=== PATIENT | male | born 1970 | race Caucasian/White ===

== ENCOUNTER 2017-07-29 16:04 | Emergency (ER) | payer OTHER ==
[~2017-07-29] VITALS: Ht 162.6 cm; Wt 92.5 kg
[~2017-07-29 16:04] MED LIST: ACET500; ACET650SUP; ACTOS PO; ALBIPROI INH; ALBU90OI INH; AMOCLA500 PO; AMOX500 PO; ASPI325; ASPI81EC PO; AZIT100SU PO; AZIT250 PO; BENZ100A PO; BUTASPCAF PO; BYDUREON P2 MG/0.65 SQ; Bactrim Ds Tab1 EACH PO; CEPH500 PO; CIPR500 PO; CLOT1TC TOP; CODBUTACEC PO; CYCL10 PO; Ciprodex Otic7.5 ML RIGHTEAR; DIAZ5 PO; DICL250 PO; DIPATR PO; DOXY100 PO; ESOM20 PO; GLIP5ER PO; GLYB2.5 PO; HYDACE10B PO; HYDACE5 PO; HYDGUAL120 PO; IBUP200; IBUP600 PO; IBUP800 PO; Janumet 50-1,01 EACH PO; Keflex500 MG PO; LEVOTHYROXINE PO; LEVSOD50 PO; LEVSOD75 PO; LIRA0.6P; LIRA0.6P SQ; LISI10 PO; LISI5 PO; LORA10ER PO; MECL25 PO; META800 PO; METF500 PO; METR500 PO; NAPR500 PO; NEOCOLOTSU OT; OXYACE5T PO; PIOG30 PO; PIOG45 PO; PRED20 PO; PROM25 PO; PROM25S PR; Prinivil10 MG PO; RXDIPATR PO; RXHYDACE PO; RXOXYACE PO; RXPROM25 PO; RXTRAM50 PO; SIMV10 PO; SITA25T2 PO; SULTRIDS PO; Simvastatin20 MG PO; TRAM50 PO; TRIA80TC TOP; [UNRECOGNIZED DRUG - REMARK]
[2017-07-29] MEDS ORDERED: FAMO20 PO (16:21)
[2017-07-29] MEDS ORDERED: SUCR1 PO (16:22)
[2017-07-29] MEDS ORDERED: CYCL10 PO (17:57)
== END 2017-07-29 18:04 | disposition home or self-care (01) ==
LOC: ER 16:04
DX: S20.211A Contusion of right front wall of thorax, initial encounter (principal); E11.9 Type 2 diabetes mellitus without complications; Z79.899 Other long term (current) drug therapy; V89.9XXA Person injured in unspecified vehicle accident, initial encounter
CPT/HCPCS: 71046; 99283

== ENCOUNTER 2018-10-13 15:05 | Emergency (ER) | payer BC ==
[~2018-10-13] VITALS: Ht 162.6 cm; Wt 88.0 kg
[~2018-10-13 15:05] MED LIST changes: +FAMO20 PO; +SUCR1 PO
[2018-10-13] MEDS ORDERED: Cheratussin AC118 ML PO (16:02)
[2018-10-13] MEDS ORDERED: GUAIFENESIN DM1 EACH PO (16:02)
== END 2018-10-13 16:08 | disposition home or self-care (01) ==
LOC: ER 15:05
DX: J06.9 Acute upper respiratory infection, unspecified (principal); Z79.899 Other long term (current) drug therapy; E11.9 Type 2 diabetes mellitus without complications
CPT/HCPCS: 71046; 99283-25

== ENCOUNTER 2020-02-20 16:22 | Emergency (ER) | payer OTHER, BC ==
[~2020-02-20] VITALS: Ht 162.6 cm; Wt 89.8 kg
[~2020-02-20 16:22] MED LIST changes: +Cheratussin AC118 ML PO; +GUAIFENESIN DM1 EACH PO
[2020-02-20] MEDS ORDERED: Norco 5-325 Ta1 EACH PO (17:25)
== END 2020-02-20 17:32 | disposition home or self-care (01) ==
LOC: ER 16:22
DX: S49.91XA Unspecified injury of right shoulder and upper arm, initial encounter (principal); E78.5 Hyperlipidemia, unspecified; I10 Essential (primary) hypertension; E03.9 Hypothyroidism, unspecified; E11.9 Type 2 diabetes mellitus without complications; K21.9 Gastro-esophageal reflux disease without esophagitis; Z79.84 Long term (current) use of oral hypoglycemic drugs; Z79.899 Other long term (current) drug therapy; X50.1XXA Overexertion from prolonged static or awkward postures, initial encounter; W00.0XXA Fall on same level due to ice and snow, initial encounter
CPT/HCPCS: 73030; 99283-25

== ENCOUNTER → 2022-09-05 | Outpatient (CLI) | payer BC, OTHER ==
[~2022-09-05] MED LIST changes: +Norco 5-325 Ta1 EACH PO
[2022-09-06 19:25] LABS: Adenovirus F 40/41 Not Detected (NOT DETECT); Astrovirus Not Detected (NOT DETECT); Campylobacter Sp Not Detected (NOT DETECT); Cryptosporidium Not Detected (NOT DETECT); Cyclospora Cayetanensis Not Detected (NOT DETECT); E. Coli O157 Not Detected (NOT DETECT); Entamoeba Histolytica Not Detected (NOT DETECT); Enteroaggregative E. coli-EAEC Not Detected (NOT DETECT); Enteropathogenic E. coli-EPEC Not Detected (NOT DETECT); Enterotoxigenic E. coli-ETEC Not Detected (NOT DETECT); Giardia Lamblia Not Detected (NOT DETECT); Norovirus GI/GII Not Detected (NOT DETECT); Plesiomonas Shigelloides Not Detected (NOT DETECT); Rotavirus A Not Detected (NOT DETECT); Salmonella Sp Not Detected (NOT DETECT); Sapovirus Not Detected (NOT DETECT); Shiga Toxin-prod E. coli-STEC Not Detected (NOT DETECT); Shigella/Enteroin E. coli-EIEC Not Detected (NOT DETECT); Vibrio Cholerae Not Detected (NOT DETECT); Vibrio Sp Not Detected (NOT DETECT); Yersinia Enterocolitica Not Detected (NOT DETECT)
== END | disposition home or self-care (01) ==
LOC: LAB SHORT 20:55 → LAB 20:55
PROVIDERS: Family Medicine
DX: R19.7 Diarrhea, unspecified (principal)
CPT/HCPCS: 87507

== ENCOUNTER → 2023-01-25 | Outpatient (CLI) | payer BC, OTHER | LOC: LAB SHORT 11:10 → LAB 11:10 | DX: L08.9 Local infection of the skin and subcutaneous tissue, unspecified (principal) | CPT/HCPCS: 87070; 87077; 87186; 87205 ==

== ENCOUNTER → 2023-08-23 | Outpatient (CLI) | payer OTHER ==
[~2023-08-23] MED LIST changes: +AMIT25 PO
[2023-08-23 17:52] LABS: BASOPHILS ABSOLUTE AUTO 0.07 K/mm3 (0.00-0.23); BASOPHILS PERCENT AUTO 1 % (0-2); EOSINOPHILS PERCENT AUTO 5 % (0-6); Hematocrit 42.9 % (37.0-53.0); Hemoglobin 14.6 g/dL (13.5-17.5); IMMATURE GRAN ABSOLUTE AUTO 0.07 K/mm3 (0.00-0.10); IMMATURE GRAN PERCENT AUTO 1 % (0-1); LYMPHOCYTES ABSOLUTE AUTO 3.15 K/mm3 (0.84-5.20); LYMPHOCYTES PERCENT AUTO 24 % (21-46); MONOCYTES ABSOLUTE AUTO 1.06 K/mm3 (0.16-1.47); MONOCYTES PERCENT AUTO 8 % (4-13); Mean Corpuscular Volume 88 fL (80-100); Mean Platelet Volume 9.8 fL (9.1-12.4); NEUTROPHILS ABSOLUTE AUTO 8.12 K/mm3 (1.96-9.15); NEUTROPHILS PERCENT AUTO 62 % (41-73); Platelet Count 333 K/mm3 (150-400); RDW Coefficient Variation 13.3 % (11.7-14.2); RDW Standard Deviation 42.8 fL (35.1-46.3); Red Blood Cell Count 4.86 M/mm3 (4.30-5.90); White Blood Cell Count 13.07 K/mm3 (4.00-11.30)
[2023-08-23 18:03] LABS: Albumin, Blood 4.2 g/dL (3.4-5.0); Albumin/Globulin Ratio 1.2 (0.8-1.8); Bilirubin, Total 0.5 mg/dL (0.1-1.0); Bun/Creatinine Ratio 19.7 (12.0-20.0); Calcium, Blood 9.7 mg/dL (8.5-10.1); Creatinine, Blood 1.27 mg/dL (0.60-1.20); Globulin, Blood 3.5 g/dL (2.2-4.0); Potassium, Blood 4.6 mmol/L (3.5-5.5); Total Protein, Blood 7.7 g/dL (6.4-8.2)
== END | disposition home or self-care (01) ==
LOC: LAB 17:48 → LAB SHORT 17:48
PROVIDERS: Emergency Medicine
DX: R00.0 Tachycardia, unspecified (principal)
CPT/HCPCS: 80053; 84484; 85025; 85379

== ENCOUNTER → 2023-11-15 | Outpatient (CLI) | payer OTHER ==
[2023-11-15 15:19] LABS: BASOPHILS ABSOLUTE AUTO 0.03 K/mm3 (0.00-0.23); BASOPHILS PERCENT AUTO 0 % (0-2); EOSINOPHILS PERCENT AUTO 4 % (0-6); Hematocrit 45.9 % (37.0-53.0); Hemoglobin 15.5 g/dL (13.5-17.5); IMMATURE GRAN ABSOLUTE AUTO 0.06 K/mm3 (0.00-0.10); IMMATURE GRAN PERCENT AUTO 0 % (0-1); LYMPHOCYTES ABSOLUTE AUTO 2.65 K/mm3 (0.84-5.20); LYMPHOCYTES PERCENT AUTO 19 % (21-46); MONOCYTES ABSOLUTE AUTO 0.95 K/mm3 (0.16-1.47); MONOCYTES PERCENT AUTO 7 % (4-13); Mean Corpuscular HGB 29.6 pg (26.0-34.0); Mean Corpuscular HGB Conc 33.8 g/dL (31.5-36.5); Mean Corpuscular Volume 88 fL (80-100); Mean Platelet Volume 9.8 fL (9.1-12.4); NEUTROPHILS PERCENT AUTO 70 % (41-73); Platelet Count 320 K/mm3 (150-400); RDW Coefficient Variation 13.4 % (11.7-14.2); RDW Standard Deviation 42.5 fL (35.1-46.3); Red Blood Cell Count 5.24 M/mm3 (4.30-5.90); White Blood Cell Count 13.89 K/mm3 (4.00-11.30)
[2023-11-15 15:23] LABS: Bun/Creatinine Ratio 24.2 (12.0-20.0); Calcium, Blood 10.2 mg/dL (8.5-10.1); Creatinine, Blood 0.95 mg/dL (0.60-1.20); Potassium, Blood 4.2 mmol/L (3.5-5.5)
== END | disposition home or self-care (01) ==
LOC: LAB SHORT 15:14 → LAB 15:14
PROVIDERS: Physician Assistant Surgical
DX: A08.4 Viral intestinal infection, unspecified (principal); R31.9 Hematuria, unspecified
CPT/HCPCS: 80048; 85025; 87086